=== PATIENT | male | born 1980 | race Caucasian/White ===

== ENCOUNTER 2021-06-01 13:52 | Emergency (ER) | payer SELFPAY ==
[2021-06-01 13:56] VITALS: BP 110/70
[2021-06-01] MEDS ORDERED: IBUPROFEN 800 MG TAB PO STA (13:57)
[2021-06-01] MEDS ORDERED: oxyCODONE /ACETAMINOPHEN 5-325MG TAB PO ONE (13:57)
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
--- NOTE | 2021-06-01 14:35 | XRay Report ---
Right shoulder, 3 views HISTORY: Pain after fall COMPARISON: None FINDINGS: There is an acute fracture of the distal third of the right clavicle. There is nearly one full shaft width (1.4 cm) inferior displacement of the distal fracture fragment. Left AC joint is intact. No add itional fracture. IMPRESSION: Acute distal right clavicle fracture Signer Name: Julio Alvarado MD Signed: 06/01/2021 2:30 PM Workstation Name: [id number]
== END 2021-06-01 15:11 | disposition home or self-care (01) ==
LOC: ED 13:52
DX: S42.031A Displaced fracture of lateral end of right clavicle, initial encounter for closed fracture (principal); V87.8XXA Person injured in other specified noncollision transport accidents involving motor vehicle (traffic), initial encounter; Y93.89 Activity, other specified; Y92.488 Other paved roadways as the place of occurrence of the external cause; Y99.8 Other external cause status
CPT/HCPCS: 99283